=== PATIENT | female | born 1945 | race Caucasian/White ===

== ENCOUNTER 2017-06-11 11:14 | Outpatient (CLI) | payer OTHER ==
--- NOTE | 2017-06-11 15:51 | MMO ---
BILATERAL SCREENING MAMMOGRAM: Date: 06/11/17 HISTORY: Screening. COMPARISON: Mammograms from 2016, 2013, 2012, and 2009. TECHNIQUE: Bilateral screening CC and MLO mammograms. This patient's mammogram was interpreted with the assistance of computer-aided detection. FINDINGS: There are scattered fibroglandular densities. No suspicious mass, microcalcifications, or architectu ral distortion. IMPRESSION: BIRADS 1: Negative Continued annual mammographic screening is recommended. POS: [facility]
== END 2017-06-11 11:15 | disposition home or self-care (01) ==
LOC: MAMMO 11:14
PROVIDERS: ATTEND Family Medicine
DX: Z12.31 Encounter for screening mammogram for malignant neoplasm of breast (principal)
CPT/HCPCS: 77067; G0202

== ENCOUNTER 2019-05-05 10:53 | Outpatient (CLI) | payer OTHER ==
--- NOTE | 2019-05-05 16:14 | MMO ---
Bilateral MAMMO Bilat Screen [facility]. CLINICAL HISTORY: Patient is 73 years old and is seen for screening. The patient has the following family history of breast cancer: maternal aunt, at age 40, malignant (generic). The patient has no personal history of cancer. VIEWS: The views performed were: bilateral craniocaudal with tomosynthesis and bilateral mediolateral oblique with tomosynthesis. FILMS COMPARED: The present examination has been compared to prior imaging studies performed at [facility] on 06/19/1998, at [facility] on 12/11/2005, and at [facility] on 04/07/2002. This study has been interpreted with the assistance of computer-aided detection. MAMMOGRAM FINDINGS: There are scattered fibroglandular densities. There are no suspicious masses, suspicious calcifications, or new areas of architectural distortion. IMPRESSION: THERE IS NO MAMMOGRAPHIC EVIDENCE OF MALIGNANCY. A ROUTINE FOLLOW-UP MAMMOGRAM IN 1 YEAR IS RECOMMENDED. THE RESULTS OF THIS EXAM WERE SENT TO THE PATIENT. ACR BI-RADS Category 1 - Negative MAMMOGRAPHY NOTE: 1. A negative mammogram report should not delay a biopsy if a dominant of clinically suspicious mass is present. 2. Approximately 10% to 15% of breast cancers are not detected by mammography. 3. Adenosis and dense breasts may obscure an underlying neoplasm. Reported by: GILBERTO HILL MD Electonically Signed: [id number]
== END 2019-05-05 10:54 | disposition home or self-care (01) ==
LOC: BICMAMMO 10:53
PROVIDERS: ATTEND Family Medicine
DX: Z12.31 Encounter for screening mammogram for malignant neoplasm of breast (principal); Z80.3 Family history of malignant neoplasm of breast
CPT/HCPCS: 77063; 77067

== ENCOUNTER 2019-07-24 10:00 | Outpatient (CLI) | payer OTHER ==
--- NOTE | 2019-07-24 10:47 | BD ---
DEXA BONE DENSITY EXAM: HISTORY: A 74-year-old postmenopausal female for screening. COMPARISON: 08/25/2013 FINDINGS: LUMBAR SPINE BMD (g/cm2) T-SCORE L1 0.697 -2.7 L2 0.701 -3.0 L3 0.723 -3.3 L4 0.721 -3.1 TOTAL L1-L4 0.711 -3.1 LEFT FEMORAL NECK 0.558 -2.6 TOTAL PROXIMAL LEFT FEMUR 0.626 -2.6 IMPRESSION: Osteoporosis. When compared to the prior examination the bone density has not changed significantly. POS: [facility]
== END 2019-07-24 10:01 | disposition home or self-care (01) ==
LOC: BICMAMMO 10:00
PROVIDERS: ATTEND Family Medicine
DX: M81.0 Age-related osteoporosis without current pathological fracture (principal)
CPT/HCPCS: 77080

== ENCOUNTER 2021-02-11 13:23 | Outpatient (CLI) | payer OTHER | END 2021-02-11 13:24 | disposition home or self-care (01) | LOC: BICMAMMO 13:23 | PROVIDERS: ATTEND Physician Assistant | DX: Z12.31 Encounter for screening mammogram for malignant neoplasm of breast (principal); Z80.3 Family history of malignant neoplasm of breast | CPT/HCPCS: 77063; 77067 ==